=== PATIENT | female | born 1960 | race Caucasian/White ===

== ENCOUNTER 2016-09-22 01:00 | Emergency (ER) | payer OTHER ==
[2016-09-22 01:07] VITALS: BP 143/87; PULSE 86; TEMP 98.6; BMI 22.3
[2016-09-22] MEDS ORDERED: TAMSULOSIN HCL 0.4 MG CAP.ER.24H (FP) PO ONE (01:21)
[2016-09-22] MEDS ORDERED: KETOROLAC TROMETHAMINE 30 MG/1 ML VIAL IVPUSH ONE (01:21)
[2016-09-22] MEDS ORDERED: SODIUM CHLORIDE 1,000 ML IV STA (01:21)
[2016-09-22] MEDS ORDERED: TAMSULOSIN HCL 0.4 MG CAP.ER.24H (FP) ONE (01:31)
[2016-09-22] MEDS ORDERED: KETOROLAC TROMETHAMINE 30 MG/1 ML VIAL ONE (01:31)
--- NOTE | 2016-09-22 02:09 | PDOC ---
History of Present Illness - General Chief Complaint: Pain Stated Complaint: LLQ ABD PAIN Time Seen by Provider: 09/22/16 01:20 History Source: Patient Exam Limitations: No Limitations - History of Present Illness Initial Comments: 09/22/16 02:02 56 Y F NO PMHX 10 DAY HX OF LLQ PAIN. CONSTANT, RADIATING AT TIMES DOWN HER GROIN AND GENITALIA AND TO THE RT FLANK. PAIN SEEMS TO WORSEN OR IMPROVE ON ITS OWN W/O IDENTIFIABLE CAUSE. SEEN PMD WHO ORDERED U/A AND TREATED W/ ABX. PAIN PERSISTS. TODAY, IT WORSENED AND SHE VOMITED TWICE. CHILLS BUT NO FEVER. IN ED, IN NAD. STS PAIN STILL PRESENT. Past History - Past Medical History Allergies/Adverse Reactions: Allergies Allergy/AdvReac Type Severity Reaction Status Date / Time No Known Allergies Allergy Unverified 09/22/16 01:05 Home Medications: Ambulatory Orders NK [No Known Home Medication] 09/22/16 Other medical history: INTUSSUSCEPTION AN - Surgical History Abdominal Surgery: Yes - Psycho/Social/Smoking Cessation Hx Anxiety: No Suicidal Ideation: No Smoking History: Never smoked Review of Systems - Review of Systems Able to Perform ROS?: Yes Is the patient limited [place] proficient: No Constitutional: Yes: Symptoms Reported, See HPI, Chills HEENTM: No: Symptoms Reported Respiratory: No: Symptoms reported Cardiac (ROS): No: Symptoms Reported ABD/GI: Yes: Symptoms Reported, See HPI : Yes: Symptoms Reported, Frequency, Pain, Urgency Musculoskeletal: No: Symptoms Reported Integumentary: No: Symptoms Reported Neurological: No: Symptoms reported All Other Systems: Reviewed and Negative *Physical Exam - Vital Signs Last Vital Signs Temp Pulse Resp BP Pulse Ox 98.6 F 86 16 143/87 98 09/22/16 01:05 09/22/16 01:05 09/22/16 01:05 09/22/16 01:05 09/22/16 01:05 - Physical Exam General Appearance: Yes: Nourished, Appropriately Dressed. No: Apparent Distress HEENT: positive: Normal ENT Inspection Respiratory/Chest: positive: Lungs Clear, Normal Breath Sounds. negative: Respiratory Distress Cardiovascular: positive: Regular Rhythm, Regular Rate Gastrointestinal/Abdominal: positive: Normal Bowel Sounds, Soft. negative: Tender, Pulsatile Mass Musculoskeletal: positive: Normal Inspection. negative: CVA Tenderness Integumentary: positive: Normal Color Neurologic: positive: Fully Oriented, Alert, Normal Mood/Affect, Normal Response , Motor Strength 12/21 ED Treatment Course - LABORATORY CBC & Chemistry Diagram: 09/22/16 01:42 09/22/16 01:42 - Medications Given in the ED: ED Medications Discontinued Medications Generic Name Dose Route Start Last Admin Trade Name Kanwal PRN Reason Stop Dose Admin Ketorolac Tromethamine 30 mg 09/22/16 01:21 09/22/16 01:42 Toradol Injection - IVPUSH 09/22/16 01:22 30 mg ONCE ONE Administration Tamsulosin HCl 0.4 mg 09/22/16 01:21 09/22/16 01:41 Flomax - PO 09/22/16 01:22 0.4 mg ONCE ONE Administration Progress Note - Progress Note Progress Note: THOUGH THE DIFFERENTIAL MAY INCLUDE DIVERTICULAR DX AND PELVIC (OVARIAN) PATHOLOGY, DURATION OF THE PAIN AND NEG ABD EXAM ARE MORE C/W URETEROLITHIASIS. HAS APPOINTMENT W/ SATURDAY WILL START ON NSAID'S, FLOMAX NO ACUTE NEED FOR IMAGING 2:51 AM MUCH BETTER LABS: WBC 11 BUT JUST FINISHED A COURSE OF ABX Cr 1.6 NOT SIGNIFUCANT D/C ON FLOMAX AND NSAID'S *DC/Admit/Observation/Transfer Diagnosis at time of Disposition: Renal colic - Discharge Dispostion Disposition: HOME Condition at time of disposition: Improved - Referrals Referrals: STAFF,NOT ON [Primary Care Provider] - 2 Days - Patient Instructions Additional Instructions: PLENTY OF FLUIDS (WATER/GATORADE) MOTRIN 800 MG 3 TIMES A DAY FOR 3 DAYS FLOMAX ONCE A DAY UNTIL STONE PASSES RETURN IF FEVER, VOMITING, SEVERE PAIN SEE YOUR UROLOGIST NEXT WEEK PLANNED STRAIN YOUR URINE TO CATCH THE STONE AND IF YOU DO BRING IT TO YOUR DOCTOR
[2016-09-22 02:26] LABS: BASOPHIL 0.2 % (0-2.0); EOSINOPHIL 0.1 % (0-4.5); MCH 29.8 pg (25.7-33.7); MCHC 33.6 g/dl (32.0-36.0); MEAN CELL VOLUME 88.7 fl (80-96); MEAN PLT VOLUME 9.4 fl (7.5-11.1); NEUTROPHILS 84.9 % (42.8-82.8); PLATELET COUNT 266 K/MM3 (134-434); RDW 13.8 % (11.6-15.6)
[2016-09-22 02:45] LABS: CALCIUM 9.2 mg/dL (8.5-10.1); CREATININE 1.6 mg/dL (0.55-1.02)
== END 2016-09-22 03:00 | disposition home or self-care (01) ==
LOC: FER 01:00
PROC: 3E0333Z Introduction of Anti-inflammatory into Peripheral Vein, Percutaneous Approach (ICD-10-PCS; principal; 2016-09-22)
PROC: 3E0337Z Introduction of Electrolytic and Water Balance Substance into Peripheral Vein, Percutaneous Approach (ICD-10-PCS; 2016-09-22)
DX: N23 Unspecified renal colic (principal); Z87.19 Personal history of other diseases of the digestive system
CPT/HCPCS: 36415; 80048; 85025; 99283-25